=== PATIENT | female | born 1980 | race African-American/Black ===

== ENCOUNTER 2017-09-26 17:16 | Emergency (ER) | payer OTHER ==
[~2017-09-26] VITALS: Ht 172.7 cm; Wt 91.0 kg
[2017-09-26] MEDS ORDERED: KETOROLAC 30MG/ML VIAL IM ONE (23:00)
[2017-09-26 23:22] LABS: BASOPHILS % 0.5 % (0.0-2.0); HEMATOCRIT. 32.3 % (36.0-48.0); HEMOGLOBIN. 10.7 g/dL (12.0-16.0); LYMPHOCYTES % 47.2 % (20.0-50.0); MEAN CORPUSCULAR HEMOGLOBIN 28.9 pg (28.0-32.0); MEAN CORPUSCULAR VOLUME 86.9 fL (81.0-99.0); MONOCYTES % 7.5 % (2.0-8.0); NEUTROPHILS % 43.8 % (40.0-76.0); PLATELET 351 x1000/uL (130-400); RED BLOOD CELL COUNT 3.71 mill/uL (4.2-5.4); RED CELL DISTRIBUTION WIDTH 15.7 % (11.6-14.6)
[2017-09-26 23:30] LABS: HCG SCREEN NEGATIVE
[2017-09-26 23:36] LABS: CARBON DIOXIDE 26 mEq/L (21-32); CHLORIDE 106 mEq/L (98-107)
[2017-09-27 03:00] VITALS: BP 112/62
[2017-09-27] MEDS ORDERED: SILVER SULFADIAZINE 1% CREAM 25GM TOP ONE (03:15)
== END 2017-09-27 03:25 | disposition home or self-care (01) ==
LOC: ER 18:05
DX: S81.801A Unspecified open wound, right lower leg, initial encounter (principal); X58.XXXA Exposure to other specified factors, initial encounter; Y93.89 Activity, other specified; Y92.89 Other specified places as the place of occurrence of the external cause; Y99.8 Other external cause status
CPT/HCPCS: 36415; 80053; 84703; 85025; 93971; 96372; 99285; J1885; Z7610